=== PATIENT | female | born 1965 | race Hispanic/Latino ===

== ENCOUNTER 2018-11-27 22:20 | Emergency (ER) | payer BC, MEDICAID ==
[2018-11-27] MEDS ORDERED: ACETAMINOPHEN EXTRA STRENGTH 500 MG TABLET ONE (22:39)
[2018-11-27] MEDS ORDERED: IPRATROPIUM/ALBUTEROL SULFATE 3 ML SOLUTION IH ONE (22:49)
[2018-11-27 23:04] LABS: RAPID GROUP A STREP NEGATIVE (NEGATIVE)
[2018-11-27] MEDS ORDERED: DEXAMETHASONE SOD PHOSPHATE 10MG/ML 1ML VIAL ONE (23:45)
== END 2018-11-28 00:18 | disposition home or self-care (01) ==
LOC: EDH 22:20
DX: J45.909 Unspecified asthma, uncomplicated (principal); F41.9 Anxiety disorder, unspecified; I10 Essential (primary) hypertension; E11.9 Type 2 diabetes mellitus without complications; Z79.4 Long term (current) use of insulin; Z90.710 Acquired absence of both cervix and uterus; Z88.0 Allergy status to penicillin; Z88.8 Allergy status to other drugs, medicaments and biological substances
CPT/HCPCS: 71046; 87804 ×2; 87880; 94640; 96372; 99284; J1100

== ENCOUNTER → 2019-03-19 | Outpatient (CLI) | payer BC, MEDICAID | END | disposition home or self-care (01) | LOC: OIH 10:59 | PROVIDERS: ATTEND Internal Medicine | DX: R06.09 Other forms of dyspnea (principal) | CPT/HCPCS: 71046 ==

== ENCOUNTER → 2020-07-28 | Outpatient (CLI) | payer BC, MEDICAID | END | disposition home or self-care (01) | LOC: RAH 10:27 | PROVIDERS: ATTEND Internal Medicine | DX: S09.90XA Unspecified injury of head, initial encounter (principal); W19.XXXA Unspecified fall, initial encounter; R11.10 Vomiting, unspecified; R11.0 Nausea; Y93.89 Activity, other specified; Y92.89 Other specified places as the place of occurrence of the external cause; Y99.8 Other external cause status | CPT/HCPCS: 70450 ==

== ENCOUNTER → 2021-02-27 | Outpatient (CLI) | payer BC, MEDICAID | END | disposition home or self-care (01) | LOC: RAH 14:41 | PROVIDERS: ATTEND Internal Medicine | DX: M79.601 Pain in right arm (principal); R29.6 Repeated falls; R40.20 Unspecified coma; R51.9 Headache, unspecified; W19.XXXA Unspecified fall, initial encounter; Y93.89 Activity, other specified; Y92.89 Other specified places as the place of occurrence of the external cause; Y99.8 Other external cause status | CPT/HCPCS: 70450; 73060 ==

== ENCOUNTER → 2021-10-21 | Outpatient (CLI) | payer BC, MEDICAID | END | disposition home or self-care (01) | LOC: OIH 09:50 | PROVIDERS: ATTEND Internal Medicine | DX: K80.20 Calculus of gallbladder without cholecystitis without obstruction (principal); K76.0 Fatty (change of) liver, not elsewhere classified; K44.9 Diaphragmatic hernia without obstruction or gangrene; M47.815 Spondylosis without myelopathy or radiculopathy, thoracolumbar region; R74.8 Abnormal levels of other serum enzymes | CPT/HCPCS: 74150 ==

== ENCOUNTER 2022-02-25 07:24 | Inpatient (IN) | payer BC, MEDICAID ==
[~2022-02-25] VITALS: Ht 152.4 cm; Wt 108.9 kg
[2022-02-25] MEDS ORDERED: NAPR-1098 PO (08:49)
[2022-02-25] MEDS ORDERED: MORPHINE 4 MG SYG IVP ONE (10:30)
[2022-02-25] MEDS ORDERED: ONDANSETRON 4MG INJ IVP ONE (10:30)
[2022-02-25 11:13] LABS: HEMATOCRIT 46.3 % (36-48); MEAN CORPUSCULAR HEMOGLOBIN 28.9 pg (27.0-33.0); MEAN CORPUSCULAR VOLUME 87.4 fL (79-99); PLATELET COUNT (AUTO) 171 K/uL (130-400); RED CELL DISTRIBUTION WIDTH 13.1 % (11.0-15.5); WHITE BLOOD COUNT (AUTO) 9.8 K/uL (4.8-10.8)
[2022-02-25 11:20] LABS: CREATININE 0.9 mg/dL (0.5-1.5); POTASSIUM 4.9 mmol/L (3.5-5.1)
[2022-02-25 11:25] LABS: ALBUMIN 3.4 g/dL (3.5-5.0); BILIRUBIN,TOTAL 0.5 mg/dL (0.2-1.0); TOTAL PROTEIN, SERUM 7.6 g/dL (6.0-8.3)
[2022-02-25 12:00] LABS: BASOPHILS % (AUTO) 0.3 % (0.0-5.0); EOSINOPHILS % (AUTO) 1.6 % (0.0-8.0); LYMPHOCYTES % (AUTO) 19.3 % (21.0-51.0); MONOCYTES % (AUTO) 5.8 % (3.0-13.0); NEUTROPHILS % (AUTO) 72.5 % (40.0-77.0)
[2022-02-25 12:38] LABS: INR 0.93 (0.85-1.15); PROTHROMBIN TIME 10.1 SEC (9.6-11.6)
[2022-02-25 13:00] VITALS: BP 157/60
[2022-02-25] MEDS ORDERED: CLON1PAT14 TP (13:25)
[2022-02-25] MEDS ORDERED: DULA1.5P SQ (13:25)
[2022-02-25] MEDS ORDERED: INSU500V SQ (13:26)
[2022-02-25] MEDS ORDERED: FAMO40TA7 PO (13:27)
[2022-02-25] MEDS ORDERED: MELO-108 PO (13:32)
[2022-02-25] MEDS ORDERED: MECL-226 PO (13:32)
[2022-02-25] MEDS ORDERED: ATEN50TA PO (13:32)
[2022-02-25] MEDS ORDERED: TRAZ-253 PO (13:32)
[2022-02-25] MEDS ORDERED: SUCR1TAB PO (13:46)
[2022-02-25] MEDS ORDERED: PREG100C55 PO (13:46)
[2022-02-25] MEDS ORDERED: CLON0.1T2 PO (13:46)
[2022-02-25] MEDS ORDERED: ACET-2079 PO (13:46)
[2022-02-25] MEDS ORDERED: ALPR1TAB7 PO (13:46)
[2022-02-25] MEDS ORDERED: INSU100V39 SQ (13:46)
[2022-02-25] MEDS ORDERED: CETI10TA57 PO (13:46)
[2022-02-25 15:48] VITALS: BP 156/76
[2022-02-25] MEDS ORDERED: GLUCAGON 1MG KIT 1 MG ML IM PRN (17:30)
[2022-02-25] MEDS ORDERED: DEXTROSE 50%-WATER 50 ML DISP.SYRIN IV PRN (17:30)
[2022-02-25] MEDS ORDERED: ONDANSETRON 4MG INJ IVP PRN (19:30)
[2022-02-25 20:04] VITALS: BP 141/57
[2022-02-25] MEDS: 0.9%NACL 1000ML 1,000 ML IV SCH (20:48)
[2022-02-25] MEDS: HYDROMORPHONE 0.5 MG SYG (0.5MG/0.5ML) IVP PRN (20:48)
[2022-02-25] MEDS: INSULIN HUMULIN R 100 UNIT/ML 3ML SQ SCH (20:54)
[2022-02-26 00:12] VITALS: BP 139/72
[2022-02-26] MEDS: 0.9%NACL 1000ML 1,000 ML IV SCH ×2 (01:36→12:59)
[2022-02-26 04:16] VITALS: BP 161/76
[2022-02-26 04:47] LABS: HEMATOCRIT 39.9 % (36-48); MEAN CORPUSCULAR HGB CONC 33.8 g/dL (32.0-36.0); MEAN CORPUSCULAR VOLUME 85.8 fL (79-99); PLATELET COUNT (AUTO) 159 K/uL (130-400); RED BLOOD CELL COUNT(AUTO) 4.65 MIL/uL (4.00-5.50); RED CELL DISTRIBUTION WIDTH 13.2 % (11.0-15.5); WHITE BLOOD COUNT (AUTO) 8.6 K/uL (4.8-10.8)
[2022-02-26 04:48] LABS: BASOPHILS % (AUTO) 0.2 % (0.0-5.0); EOSINOPHILS % (AUTO) 4.7 % (0.0-8.0); LYMPHOCYTES % (AUTO) 29.8 % (21.0-51.0); MONOCYTES % (AUTO) 7.2 % (3.0-13.0); NEUTROPHILS % (AUTO) 57.8 % (40.0-77.0)
[2022-02-26 05:01] LABS: BILIRUBIN,TOTAL 0.7 mg/dL (0.2-1.0); CREATININE 0.7 mg/dL (0.5-1.5); POTASSIUM 4.3 mmol/L (3.5-5.1); TOTAL PROTEIN, SERUM 6.9 g/dL (6.0-8.3)
[2022-02-26] MEDS: INSULIN HUMULIN R 100 UNIT/ML 3ML SQ SCH ×4 (06:16→20:01)
[2022-02-26 07:11] VITALS: BP 148/92
[2022-02-26 11:18] VITALS: BP 129/60
[2022-02-26] MEDS: HYDROMORPHONE 0.5 MG SYG (0.5MG/0.5ML) IVP PRN ×2 (15:37→21:13)
[2022-02-26 16:08] VITALS: BP 152/73
[2022-02-26 20:00] VITALS: BP 165/79
[2022-02-27] VITALS: BP 121/51
[2022-02-27] MEDS: 0.9%NACL 1000ML 1,000 ML IV SCH ×3 (00:48→20:47)
[2022-02-27 04:00] VITALS: BP 153/73
[2022-02-27] MEDS: INSULIN HUMULIN R 100 UNIT/ML 3ML SQ SCH ×5 (06:01→20:18)
[2022-02-27 12:00] VITALS: BP 169/72
[2022-02-27 16:00] VITALS: BP 168/71
[2022-02-27 20:00] VITALS: BP 161/75
[2022-02-28] VITALS: BP 158/70
[2022-02-28 03:50] VITALS: BP 149/73
[2022-02-28] MEDS: 0.9%NACL 1000ML 1,000 ML IV SCH (06:21)
[2022-02-28] MEDS: INSULIN HUMULIN R 100 UNIT/ML 3ML SQ SCH (06:21)
== END 2022-02-28 09:42 | disposition home or self-care (01) | DRG 563 ==
LOC: EDH 07:24 → 4AH 11:06 → EDH 12:26
PROVIDERS: ADMIT Internal Medicine; ATTEND Internal Medicine
DX: S42.215A Unspecified nondisplaced fracture of surgical neck of left humerus, initial encounter for closed fracture (principal); S42.214A Unspecified nondisplaced fracture of surgical neck of right humerus, initial encounter for closed fracture; Z68.42 Body mass index [BMI] 45.0-49.9, adult; I10 Essential (primary) hypertension; E11.9 Type 2 diabetes mellitus without complications; E66.01 Morbid (severe) obesity due to excess calories; E78.5 Hyperlipidemia, unspecified; Z20.822 Contact with and (suspected) exposure to COVID-19; K21.9 Gastro-esophageal reflux disease without esophagitis; W06.XXXA Fall from bed, initial encounter; J45.909 Unspecified asthma, uncomplicated; Y93.89 Activity, other specified; Y92.89 Other specified places as the place of occurrence of the external cause; Y99.8 Other external cause status; Z79.4 Long term (current) use of insulin
CPT/HCPCS: 36415; 72070; 73030; 73200; 80053; 82948; 85025; 85610; 87635; 93005; C9803; G0378; J1170; J1815; J2270; J2405

== ENCOUNTER 2022-04-25 14:56 | Emergency (ER) | payer BC, MEDICAID ==
[~2022-04-25] VITALS: Ht 152.4 cm; Wt 104.3 kg
[~2022-04-25 14:56] MED LIST: ACET-2079 PO; ALPR1TAB7 PO; ATEN50TA PO; CETI10TA57 PO; CLON0.1T2 PO; CLON1PAT14 TP; DULA1.5P SQ; FAMO40TA7 PO; INSU100V39 SQ; INSU500V SQ; MECL-226 PO; MELO-108 PO; PREG100C55 PO; SUCR1TAB PO; TRAZ-253 PO
[2022-04-25] MEDS ORDERED: PANTOPRAZOLE 40 MG/VIAL IVP ONE (15:30)
[2022-04-25 15:38] LABS: APPEARANCE,URINE SL CLOUDY (CLEAR); BILIRUBIN,URINE SMALL (NEGATIVE); COLOR,URINE YELLOW (YELLOW); GLUCOSE, URINE (UA) >=1000 mg/dL (NEGATIVE); KETONES,URINE >=80 mg/dL (NEGATIVE); LEUKOCYTE ESTERASE ,URINE NEGATIVE (NEGATIVE); NITRATE,URINE POSITIVE (NEGATIVE); OCCULT BLOOD,URINE SMALL (NEGATIVE); PH,URINE 5.5 (5.0-8.0); PROTEIN,URINE >=300 mg/dL (NEGATIVE)
[2022-04-25 15:49] LABS: BACTERIA,URINE Few /HPF (None Seen); MUCUS,URINE Moderate LPF (None Seen); SQUAMOUS EPITHELIAL CELL,UR Moderate /HPF (0-2); YEAST,URINE BUDDING Moderate /HPF (None Seen)
[2022-04-25 15:56] LABS: BASOPHILS % (AUTO) 0.4 % (0.0-5.0); EOSINOPHILS % (AUTO) 0.3 % (0.0-8.0); HEMATOCRIT 46.1 % (36-48); LYMPHOCYTES % (AUTO) 23.5 % (21.0-51.0); MEAN CORPUSCULAR HEMOGLOBIN 28.5 pg (27.0-33.0); MEAN CORPUSCULAR VOLUME 86.3 fL (79-99); MONOCYTES % (AUTO) 6.2 % (3.0-13.0); NEUTROPHILS % (AUTO) 69.2 % (40.0-77.0); PLATELET COUNT (AUTO) 203 K/uL (130-400); RED BLOOD CELL COUNT(AUTO) 5.34 MIL/uL (4.00-5.50); RED CELL DISTRIBUTION WIDTH 13.4 % (11.0-15.5); WHITE BLOOD COUNT (AUTO) 9.2 K/uL (4.8-10.8)
[2022-04-25 16:13] LABS: ALBUMIN 3.7 g/dL (3.5-5.0); CREATININE 1.1 mg/dL (0.5-1.5); POTASSIUM 4.6 mmol/L (3.5-5.1); TOTAL PROTEIN, SERUM 8.2 g/dL (6.0-8.3)
[2022-04-25] MEDS ORDERED: PANTOPRAZOLE 40 MG/VIAL ONE (16:40)
[2022-04-25] MEDS ORDERED: 0.9%NACL 1000ML 1,000 ML IV ONE (17:00)
[2022-04-25] MEDS ORDERED: INSULIN HUMULIN R 100 UNIT/ML 3ML IV ONE (17:00)
[2022-04-25] MEDS ORDERED: LIDOCAINE HCL 2% VISCOUS 15 ML UDCUP ONE (17:02)
[2022-04-25] MEDS ORDERED: MAG/ALUM/SIMETH 30 ML UDCUP ONE (17:02)
[2022-04-25 18:40] VITALS: BP 156/75
[2022-04-25] MEDS ORDERED: CIPR-279 PO (18:45)
== END 2022-04-25 18:50 | disposition home or self-care (01) ==
LOC: EDH 14:56
DX: N39.0 Urinary tract infection, site not specified (principal); E11.65 Type 2 diabetes mellitus with hyperglycemia; F32.A Depression, unspecified; I10 Essential (primary) hypertension; J45.909 Unspecified asthma, uncomplicated; K21.9 Gastro-esophageal reflux disease without esophagitis; E66.01 Morbid (severe) obesity due to excess calories; Z79.1 Long term (current) use of non-steroidal anti-inflammatories (NSAID); Z79.4 Long term (current) use of insulin; Z79.899 Other long term (current) drug therapy; Z88.0 Allergy status to penicillin; Z88.8 Allergy status to other drugs, medicaments and biological substances; Z68.41 Body mass index [BMI] 40.0-44.9, adult
CPT/HCPCS: 36415; 80053; 81001; 82150; 82948; 83690; 84484; 85025; 87088; 93005; 96361; 96374; 96375; 99284; C9113; J1815; J7030

== ENCOUNTER → 2022-08-23 | Outpatient (CLI) | payer BC, MEDICAID ==
[~2022-08-23] MED LIST changes: +CIPR-279 PO
== END | disposition home or self-care (01) ==
LOC: RAH 08:40
PROVIDERS: ATTEND Internal Medicine
DX: R10.2 Pelvic and perineal pain (principal); R10.9 Unspecified abdominal pain
CPT/HCPCS: 76770; 76856

== ENCOUNTER 2023-05-14 05:36 | Emergency (ER) | payer BC, MEDICAID ==
[~2023-05-14] VITALS: Ht 152.4 cm; Wt 112.5 kg
[~2023-05-14 05:36] MED LIST changes: -INSU100V39 SQ; +INSU100V45 SQ
[2023-05-14 06:10] LABS: BASOPHILS % (AUTO) 0.1 % (0.0-5.0); EOSINOPHILS % (AUTO) 6.8 % (0.0-8.0); HEMATOCRIT 41.3 % (36-48); LYMPHOCYTES % (AUTO) 39.7 % (21.0-51.0); MEAN CORPUSCULAR HEMOGLOBIN 28.6 pg (27.0-33.0); MEAN CORPUSCULAR HGB CONC 33.2 g/dL (32.0-36.0); MEAN CORPUSCULAR VOLUME 86.2 fL (79-99); MONOCYTES % (AUTO) 9.5 % (3.0-13.0); NEUTROPHILS % (AUTO) 43.7 % (40.0-77.0); PLATELET COUNT (AUTO) 180 K/uL (130-400); RED BLOOD CELL COUNT(AUTO) 4.79 MIL/uL (4.00-5.50); WHITE BLOOD COUNT (AUTO) 8.2 K/uL (4.8-10.8)
[2023-05-14 06:16] LABS: APPEARANCE,URINE CLEAR (CLEAR); BILIRUBIN,URINE NEGATIVE (NEGATIVE); COLOR,URINE LIGHT-YELLOW (YELLOW); GLUCOSE, URINE (UA) NEGATIVE (NEGATIVE); KETONES,URINE NEGATIVE (NEGATIVE); LEUKOCYTE ESTERASE ,URINE NEGATIVE Leu/uL (NEGATIVE); NITRATE,URINE NEGATIVE (NEGATIVE); OCCULT BLOOD,URINE NEGATIVE (NEGATIVE); PH,URINE 6.5 (5.0-8.0); PROTEIN,URINE NEGATIVE (NEGATIVE); UROBILINOGEN,URINE 0.2 mg/dL (0.2-1.0)
[2023-05-14 06:19] LABS: CREATININE 0.8 mg/dL (0.5-1.5); POTASSIUM 3.5 mmol/L (3.5-5.1)
[2023-05-14 06:23] LABS: ALBUMIN 3.2 g/dL (3.5-5.0); TOTAL PROTEIN, SERUM 7.5 g/dL (6.0-8.3)
[2023-05-14] MEDS ORDERED: FAMOTIDINE 20MG VIAL IV ONE (08:30)
[2023-05-14] MEDS ORDERED: DEXAMETHASONE SOD PHOSPHATE 4 MG/ML 1ML VIAL IV ONE (08:30)
[2023-05-14] MEDS ORDERED: MORPHINE 2 MG SYG IVP ONE (08:30)
[2023-05-14] MEDS ORDERED: METOCLOPRAMIDE 10 MG/2 ML VIAL IVP ONE (08:30)
[2023-05-14] MEDS ORDERED: GADOTERATE MEGLUMINE 10 MMOL/20 ML VIAL IV ONE (12:06)
[2023-05-14] MEDS ORDERED: SUMA25TA25 PO (13:28)
[2023-05-14] MEDS ORDERED: METO-296 PO (13:28)
[2023-05-14 13:43] VITALS: BP 139/58; PULSE 74; RESP 18
== END 2023-05-14 13:48 | disposition home or self-care (01) ==
LOC: EDH 05:36
DX: G43.909 Migraine, unspecified, not intractable, without status migrainosus (principal); F41.9 Anxiety disorder, unspecified; J45.909 Unspecified asthma, uncomplicated; E11.9 Type 2 diabetes mellitus without complications; F32.A Depression, unspecified; I10 Essential (primary) hypertension; Z79.4 Long term (current) use of insulin; Z79.899 Other long term (current) drug therapy; Z88.0 Allergy status to penicillin; Z88.8 Allergy status to other drugs, medicaments and biological substances
CPT/HCPCS: 99285; 70553; 96374; 96375; 70450; 84484; 80053; 85025; 82948 ×3; 81003; 36415; 93005; J1100; J3490; J2270; J2765; A9575

== ENCOUNTER → 2024-01-12 | Outpatient (CLI) | payer BC, MEDICAID ==
[~2024-01-12] MED LIST changes: +METO-296 PO; -PREG100C55 PO; +PREG100C56 PO; +SUMA25TA25 PO
== END | disposition home or self-care (01) ==
LOC: RAH 11:43
PROVIDERS: ATTEND Internal Medicine
DX: M47.26 Other spondylosis with radiculopathy, lumbar region (principal)
CPT/HCPCS: 72100

== ENCOUNTER 2024-03-19 20:51 | Emergency (ER) | payer BC, MEDICAID ==
[~2024-03-19] VITALS: Ht 152.4 cm; Wt 113.9 kg
[2024-03-19 21:40] LABS: BASOPHILS # (AUTO) 0.04 K/uL (0.00-0.20); BASOPHILS % (AUTO) 0.5 % (0.0-5.0); EOSINOPHILS # (AUTO) 0.36 K/uL (0.00-0.70); EOSINOPHILS % (AUTO) 4.9 % (0.0-8.0); HEMATOCRIT 43.6 % (36-48); IMMATURE GRANULOCYTE ABSOLUTE 0.02 K/uL (0-1); LYMPHOCYTES # (AUTO) 2.5 K/uL (1.0-4.8); LYMPHOCYTES % (AUTO) 34.3 % (21.0-51.0); MEAN CORPUSCULAR HEMOGLOBIN 29.4 pg (27.0-33.0); MEAN CORPUSCULAR HGB CONC 33.5 g/dL (32.0-36.0); MEAN CORPUSCULAR VOLUME 87.9 fL (79-99); MONOCYTES # (AUTO) 0.6 K/uL (0.1-1.0); MONOCYTES % (AUTO) 8.2 % (3.0-13.0); NEUTROPHILS # (AUTO) 3.8 K/uL (1.8-7.7); NEUTROPHILS % (AUTO) 51.8 % (40.0-77.0); PLATELET COUNT (AUTO) 177 K/uL (130-400); RED BLOOD CELL COUNT(AUTO) 4.96 MIL/uL (4.00-5.50); RED CELL DISTRIBUTION WIDTH 13.7 % (11.0-15.5); WHITE BLOOD COUNT (AUTO) 7.3 K/uL (4.8-10.8)
[2024-03-19 21:51] LABS: CREATININE 0.8 mg/dL (0.5-1.0); POTASSIUM 3.9 mmol/L (3.5-5.1)
[2024-03-19] MEDS: MORPHINE 2 MG SYG IVP ONE (21:57)
[2024-03-19] MEDS: ONDANSETRON 4MG INJ IVP ONE (21:57)
[2024-03-19 22:00] LABS: ALBUMIN 3.4 g/dL (3.5-5.0); BILIRUBIN,TOTAL 0.5 mg/dL (0.2-1.0); TOTAL PROTEIN, SERUM 7.4 g/dL (6.0-8.3)
[2024-03-20 00:37] LABS: APPEARANCE,URINE CLEAR (CLEAR); BILIRUBIN,URINE NEGATIVE (NEGATIVE); COLOR,URINE LIGHT-YELLOW (YELLOW); GLUCOSE, URINE (UA) NEGATIVE (NEGATIVE); KETONES,URINE NEGATIVE (NEGATIVE); LEUKOCYTE ESTERASE ,URINE NEGATIVE Leu/uL (NEGATIVE); NITRATE,URINE NEGATIVE (NEGATIVE); OCCULT BLOOD,URINE NEGATIVE (NEGATIVE); PH,URINE 6.5 (5.0-8.0); PROTEIN,URINE 10 mg/dL (NEGATIVE); UROBILINOGEN,URINE 0.2 mg/dL (0.2-1.0)
[2024-03-20 00:41] LABS: ADD UA MICROSCOPIC YES
[2024-03-20 00:42] LABS: MUCUS,URINE RARE LPF (None Seen); RBC,URINE 0-1 /HPF (0-1); SQUAMOUS EPITHELIAL CELL,UR MOD /HPF (0-2); WBC,URINE 0-1 /HPF (0-1)
[2024-03-20] MEDS: KETOROLAC 30MG VIAL (30MG/ML) IVP ONE (01:02)
[2024-03-20 01:09] VITALS: BP 158/87; PULSE 85; RESP 18; O2SAT 98
== END 2024-03-20 01:11 | disposition home or self-care (01) ==
LOC: EDH 20:51
DX: G89.29 Other chronic pain (principal); M25.551 Pain in right hip; R10.84 Generalized abdominal pain; J45.909 Unspecified asthma, uncomplicated; E11.9 Type 2 diabetes mellitus without complications; I10 Essential (primary) hypertension; M19.90 Unspecified osteoarthritis, unspecified site; Z88.0 Allergy status to penicillin; Z88.8 Allergy status to other drugs, medicaments and biological substances; Z79.899 Other long term (current) drug therapy; Z79.4 Long term (current) use of insulin; Z90.710 Acquired absence of both cervix and uterus
CPT/HCPCS: 99284; 96374; 96375 ×2; 84484; 80053; 85025; 81001; 36415; J2270; J2405; J1885

== ENCOUNTER 2024-04-24 06:54 | Day surgery (SDC) | payer BC, MEDICAID ==
[2024-04-20 12:59] VITALS: BP 159/71; PULSE 85; RESP 18
[2024-04-20 13:02] LABS: BASOPHILS # (AUTO) 0.03 K/uL (0.00-0.20); BASOPHILS % (AUTO) 0.3 % (0.0-5.0); EOSINOPHILS # (AUTO) 0.39 K/uL (0.00-0.70); EOSINOPHILS % (AUTO) 4.2 % (0.0-8.0); HEMATOCRIT 43.9 % (36-48); IMMATURE GRANULOCYTE ABSOLUTE 0.02 K/uL (0-1); LYMPHOCYTES # (AUTO) 2.2 K/uL (1.0-4.8); LYMPHOCYTES % (AUTO) 23.6 % (21.0-51.0); MEAN CORPUSCULAR HEMOGLOBIN 28.9 pg (27.0-33.0); MEAN CORPUSCULAR HGB CONC 32.8 g/dL (32.0-36.0); MEAN CORPUSCULAR VOLUME 88.2 fL (79-99); MONOCYTES # (AUTO) 0.7 K/uL (0.1-1.0); NEUTROPHILS % (AUTO) 64.7 % (40.0-77.0); PLATELET COUNT (AUTO) 208 K/uL (130-400); RED BLOOD CELL COUNT(AUTO) 4.98 MIL/uL (4.00-5.50); RED CELL DISTRIBUTION WIDTH 13.2 % (11.0-15.5); WHITE BLOOD COUNT (AUTO) 9.3 K/uL (4.8-10.8)
[2024-04-20 13:09] LABS: CREATININE 0.8 mg/dL (0.5-1.0); POTASSIUM 4.3 mmol/L (3.5-5.1)
[2024-04-20 13:16] LABS: APPEARANCE,URINE CLOUDY (CLEAR); BILIRUBIN,URINE NEGATIVE (NEGATIVE); COLOR,URINE YELLOW (YELLOW); GLUCOSE, URINE (UA) 70 mg/dL (NEGATIVE); KETONES,URINE NEGATIVE (NEGATIVE); LEUKOCYTE ESTERASE ,URINE NEGATIVE Leu/uL (NEGATIVE); NITRATE,URINE NEGATIVE (NEGATIVE); OCCULT BLOOD,URINE NEGATIVE (NEGATIVE); PH,URINE 5.5 (5.0-8.0); PROTEIN,URINE 10 mg/dL (NEGATIVE); UROBILINOGEN,URINE 0.2 mg/dL (0.2-1.0)
[2024-04-20 13:19] LABS: ADD UA MICROSCOPIC YES
[2024-04-20 13:24] LABS: MUCUS,URINE RARE LPF (None Seen); RBC,URINE 0-1 /HPF (0-1); SQUAMOUS EPITHELIAL CELL,UR FEW /HPF (0-2)
[2024-04-20 14:13] LABS: B-TYPE NATRIURETIC PEPTIDE 9 pg/mL (0-100)
[2024-04-20 14:16] LABS: INR 1.04 (0.85-1.15); PARTIAL THROMBOPLASTIN TIME 59.5 SEC (26.3-35.5)
[~2024-04-24] VITALS: Ht 152.4 cm; Wt 109.1 kg
[2024-04-24] VITALS (10 sets, daily range): BP systolic 111–178; BP diastolic 40–62; PULSE 67–87; RESP 13–18
[~2024-04-24 06:54] MED LIST changes: -ACET-2079 PO; +AMLO-257 PO; -ATEN50TA PO; +CELE-125 PO; -CETI10TA57 PO; -CIPR-279 PO; -CLON1PAT14 TP; -DULA1.5P SQ; +DULO40CA2 PO; +ESCI-8 PO; +FURO20TA4 PO; +HYDR-4068 PO; -INSU100V45 SQ; -INSU500V SQ; +LABE100T7 PO; +LOSA100T59 PO; -MELO-108 PO; -METO-296 PO; +PANT40TA54 PO; -PREG100C56 PO; -SUCR1TAB PO; -SUMA25TA25 PO; -TRAZ-253 PO; +TRAZ150T79 PO
[2024-04-24] MEDS: INSULIN HUMULIN R 100 UNIT/ML 3ML SQ ONE (07:45)
[2024-04-24] MEDS: 0.9%NACL 1000ML 1,000 ML IV ONE (08:33)
[2024-04-24] MEDS: INSULIN HUMULIN R 100 UNIT/ML 3ML ONE ×2 (09:41→14:39)
[2024-04-24] MEDS ORDERED: LIDOCAINE HCL 400MG/20ML VIAL ONE (12:01)
[2024-04-24] MEDS ORDERED: BIVALIRUDIN 250 MG/VIAL IV ONE (12:01)
[2024-04-24] MEDS ORDERED: MIDAZOLAM HCL 1 MG/ML 2ML VIAL ONE (12:02)
[2024-04-24] MEDS ORDERED: NITROGLYCERIN 50MG VIAL ONE (12:02)
[2024-04-24] MEDS ORDERED: IOHEXOL 350 MG/ML 100ML INFUS..BTL IV ONE (12:02)
[2024-04-24] MEDS ORDERED: FENTANYL CITRATE PF 50 MCG/1 ML 2ML VIAL ONE (12:02)
[2024-04-24] MEDS ORDERED: HEPARIN 10,000 UNIT/10ML (1,000 UNIT/ML) VIAL ONE (12:02)
[2024-04-24] MEDS ORDERED: LABETALOL 20MG SYG IV ONE ×3 (12:38→12:58)
[2024-04-24] MEDS ORDERED: IOHEXOL-350 50ML VIAL IV ONE (12:38)
[2024-04-24] MEDS ORDERED: 0.9%NACL 1000ML 1,000 ML IV SCH (13:30)
[2024-04-24] MEDS ORDERED: DEXTROSE 50%-WATER 50 ML DISP.SYRIN IV PRN (13:30)
[2024-04-24] MEDS ORDERED: GLUCAGON 1MG KIT 1 MG ML IM PRN (13:30)
[2024-04-24] MEDS ORDERED: TELM80TA10 PO (14:12)
[2024-04-24] MEDS ORDERED: INSULIN HUMULIN R 100 UNIT/ML 3ML SQ SCH (16:30)
== END 2024-04-24 17:50 | disposition home or self-care (01) ==
LOC: DAH 06:54
PROVIDERS: ATTEND Internal Medicine Cardiovascular Disease
DX: R07.89 Other chest pain (principal); R06.09 Other forms of dyspnea; I11.0 Hypertensive heart disease with heart failure; I50.32 Chronic diastolic (congestive) heart failure; G47.30 Sleep apnea, unspecified; J45.909 Unspecified asthma, uncomplicated; E11.9 Type 2 diabetes mellitus without complications; K21.9 Gastro-esophageal reflux disease without esophagitis; E66.01 Morbid (severe) obesity due to excess calories; Z68.42 Body mass index [BMI] 45.0-49.9, adult; Z79.891 Long term (current) use of opiate analgesic; Z79.899 Other long term (current) drug therapy; Z88.0 Allergy status to penicillin; Z88.8 Allergy status to other drugs, medicaments and biological substances; Z91.041 Radiographic dye allergy status; Z82.5 Family history of asthma and other chronic lower respiratory diseases; Z80.42 Family history of malignant neoplasm of prostate; Z83.79 Family history of other diseases of the digestive system; Z80.3 Family history of malignant neoplasm of breast; Z83.3 Family history of diabetes mellitus; Z82.49 Family history of ischemic heart disease and other diseases of the circulatory system; Z90.710 Acquired absence of both cervix and uterus; Z98.890 Other specified postprocedural states
CPT/HCPCS: 80048; 83880; 85025; 85610; 85730; 81001; 36415; 71045; 93005; 93460; 36252; 82948 ×3; J1815 ×3; C1894 ×3; C1769; C1760; J3010; J3490 ×2; J7030; J2250; J1644; Q9967 ×2; A4215; A4222; A4221; A4663; A4216; A4606; Q9965 ×2; A4223 ×3; 99156; 99157; J0583

== ENCOUNTER → 2024-11-21 | Outpatient (CLI) | payer BC, MEDICAID ==
[~2024-11-21] MED LIST changes: -FURO20TA4 PO; -LOSA100T59 PO; +TELM80TA10 PO
--- NOTE | 2024-11-21 14:46 | HMCIMG ---
RIGHT KNEE RADIOGRAPHS - 3 VIEWS INDICATION: Pain COMPARISON: 08/31/2021 FINDINGS: AP, lateral, and oblique views. No acute fracture or dislocation identified. Nominal tricompartmental right knee osteoarthropathy. Trace suprapatellar bursal fluid. Overlying soft tissues appear normal. IMPRESSION: Nominal tricompartmental right knee osteoarthropathy and trace suprapatellar bursal fluid.
== END | disposition home or self-care (01) ==
LOC: RAH 10:38
PROVIDERS: ATTEND Internal Medicine
DX: M17.11 Unilateral primary osteoarthritis, right knee (principal)
CPT/HCPCS: 73562

== ENCOUNTER → 2024-12-12 | Outpatient (CLI) | payer BC, MEDICAID ==
--- NOTE | 2024-12-12 13:00 | HMCIMG ---
CT LOW EXT W/O CONTRAST HISTORY: Bursitis of the knee COMPARISON: None TECHNIQUE: Multiple sequential axial images of the right knee were obtained including post processing sagittal and coronal reconstruction images. Patient was not given contrast through intravenous route. Three-dimensional reconstruction images were obtained. FINDINGS: Small joint effusion is seen. There is no acute displaced fracture or dislocation. If needed, MRI may be performed for complete evaluation. Evaluation for ligaments, tendons, menisci are limited with CT. IMPRESSION: 1. No fracture is seen. Small joint effusion. CT was performed with one or more following dose reduction techniques: automated exposure control, adjustment of the mA and kv according to patient's size, or use of a iterative reconstruction technique.
== END | disposition home or self-care (01) ==
LOC: RAH 11:42
PROVIDERS: ATTEND Internal Medicine
DX: M71.561 Other bursitis, not elsewhere classified, right knee (principal); M23.91 Unspecified internal derangement of right knee; M25.461 Effusion, right knee; R26.81 Unsteadiness on feet
CPT/HCPCS: 73700

== ENCOUNTER 2025-03-13 19:22 | Emergency (ER) | payer BC, MEDICAID ==
[~2025-03-13] VITALS: Ht 152.4 cm; Wt 107.0 kg
--- NOTE | 2025-03-13 19:50 | ERN ---
ED Note History of Present Illness Stated Complaint: ABDOMINAL PAIN, URINARY SYMPTOMS Chief Complaint: Abdominal Pain Time Seen by MD: 19:25 Time Seen by Midlevel: 19:25 Dictation: The patient is a 59-year-old female with a history of hypertension, COPD, diabetes who presents to the emergency department with complaints of lower abdominal pain that radiates up her left upper abdominal pain onset 3:00 p.m. associated with nausea and nonbloody vomiting. Patient denies any diarrhea, reports one episode of bowel movement today. Denies any fever. Patient initially reported that she had trouble urinating but reports she has now been able to urinate. Allergies: Coded Allergies: Penicillins (Verified Allergy, Mild, 02/25/22) povidone-iodine (Verified Allergy, Unknown, SWELLING, 02/25/22) TROPICAL/INTRAVENOUS Uncoded Allergies: LAXATIVES (Allergy, Mild, 02/25/22) Home Meds Reported Medications Telmisartan (Telmisartan) 80 Mg Tablet, 80 MG PO DAILY, TAB 04/24/24 Amlodipine Besylate (Amlodipine Besylate) 5 Mg Tablet, 5 MG PO DAILY, TAB 04/23/24 Labetalol HCl (Labetalol HCl) 100 Mg Tablet, 200 MG PO BID, TAB 04/23/24 Escitalopram Oxalate (Escitalopram Oxalate) 10 Mg Tablet, 10 MG PO DAILY, TAB 24 Hydrocodone/Acetaminophen (Hydrocodon-Acetaminophn 10-325) 10 Mg-325 Mg Tablet, 1 EACH PO BID PRN for PAIN, TAB 04/23/24 Pantoprazole Sodium (Pantoprazole Sodium) 40 Mg Tablet.dr, 40 MG PO DAILY, TAB 04/23/24 Duloxetine HCl (Duloxetine HCl) 40 Mg Capsule.dr, 80 MG PO DAILY, CAP 04/23/24 Celecoxib (Celecoxib) 200 Mg Capsule, 200 MG PO HS, CAP 04/23/24 Trazodone HCl (Trazodone HCl) 150 Mg Tablet, 150 MG PO HS, TAB 04/23/24 Alprazolam (Alprazolam) 1 Mg Tablet, 1 MG PO BID 02/25/22 Clonidine HCl (Catapress) 0.1 Mg Tab, 0.1 MG PO BID 02/25/22 Meclizine HCl (Meclizine HCl) 12.5 Mg Tablet, 12.5 MG PO TID 02/25/22 Famotidine (Famotidine) 40 Mg Tablet, 40 MG PO HS 02/25/22 Past Medical History Past Medical History: Arthritis, Asthma, Diabetes-Type II, Hypertension Additional Past Medical Hx: HX OF SLEEP APNEA; Surgical History: Hysterectomy, Other Surgical History Other: BACK SX Social History: Negative, Lives with family RN Note Reviewed/Agreed w/PFSH: Yes Review of System Dictation Constitutional: Negative for fever,chills, and weight loss Eyes: Negative for injury, pain,redness, and discharge ENT: Negative for injury,pain or swelling Cardiovascular: Negative for chest pain, palpitations, and edema Respiratory: Negative for shortness of breath, cough, and wheezing, Abdomen/GI: Negative for diarrhea, and constipation positive for abdominal pain, nausea, vomiting Back: Negative for injury and pain : Negative for injury, bleeding and discharge MS/Extremity: Negative for injury and deformity Skin: Negative for rash, and discoloration Neuro: Negative for headache, weakness, numbness, tingling, and seizure Psych: Negative for suicide ideation, homicidal ideation, and hallucinations Initial Vital Sign VS Vital Signs Date Time Temp Pulse Resp B/P (MAP) Pulse Ox O2 Delivery O2 Flow Rate FiO2 03/13/25 19:33 98.4 87 16 201/75 100 Room Air* 0 21 Physical Exam Dictation Vital Signs reviewed General Appearance: Alert, oriented x 3, no acute distress, well developed, nourished. Head and Face: non-traumatic. Eyes: PERRL, pink conjunctivas, eyelid no trauma, anterior chamber with arcus senilis. Ears: Pinnas intact and no signs of trauma or erythema ear canals clear and no discharge TM no erythema Nose: No discharge, no bleeding. Oropharynx: Mouth normal, tongue pink. pharynx clear,no erythema, tonsils no exudates, no abscesses noted, mucous membrane moist Neck: Supple, non-tender, no thyromegaly, no masses, no JVD, no bruits Breast:Deferred Chest:No tenderness, no crepitus, no paradoxical movement, no retractions Lungs:Clear, well-ventilated, symmetric, no rales, no wheezing, no rhonchi, no stridor, good breath sounds bilaterally Heart: Regular rate, regular rhythm, no murmur, no gallops Vascular: no peripheral edema, Abdomen: Soft, positive bowel sounds, nondistended, no guarding, Generalized tenderness,, no rebound, no masses no hepatomegaly, no splenomegaly, no Ratliff's sign, no hernias. Rectal: Deferred Genital: Deferred Neurological: Normal speech, motor function intact, sensory function intact Musculoskeletal: Neck nontender, full range of motion, back nontender, full range of motion, Extremities: nontender, full range of motion Skin: Color pink, dry, no turgor, no rash, no lacerations, no abrasions, no contusions. Lymphatic: Deferred Results (Laboratory/Radiology) Laboratory/Radiology Laboratory Tests Test 03/13/25 19:45 03/13/25 22:20 White Blood Count 11.9 K/uL (4.8-10.8) H Red Blood Count 5.89 MIL/uL (4.00-5.50) H Hemoglobin 17.3 g/dL (12.0-16.0) H Hematocrit 49.2 % (36-48) H Mean Corpuscular Volume 83.5 fL (79-99) Mean Corpuscular Hemoglobin 29.4 pg (27.0-33.0) Mean Corpuscular Hemoglobin Concent 35.2 g/dL (32.0-36.0) Red Cell Distribution Width 13.1 % (11.0-15.5) Platelet Count 231 K/uL (130-400) Mean Platelet Volume 11.4 fL (7.5-10.5) H Immature Granulocyte % (Auto) 0.3 % (0-1) Neutrophils (%) (Auto) 70.9 % (40.0-77.0) Lymphocytes (%) (Auto) 21.7 % (21.0-51.0) Monocytes (%) (Auto) 6.1 % (3.0-13.0) Eosinophils (%) (Auto) 0.7 % (0.0-8.0) Basophils (%) (Auto) 0.3 % (0.0-5.0) Neutrophils # (Auto) 8.4 K/uL (1.8-7.7) H Lymphocytes # (Auto) 2.6 K/uL (1.0-4.8) Monocytes # (Auto) 0.7 K/uL (0.1-1.0) Eosinophils # (Auto) 0.08 K/uL (0.00-0.70) Basophils # (Auto) 0.04 K/uL (0.00-0.20) Absolute Immature Granulocyte (auto 0.04 K/uL (0-1) Nucleated Red Blood Cells 0.0 % (0.0-0.19) Sodium Level 143 mmol/L (136-145) Potassium Level 2.8 mmol/L (3.5-5.1) *L Chloride Level 103 mmol/L (101-111) Carbon Dioxide Level 26 mmol/L (21-32) Blood Urea Nitrogen 14 mg/dL (7-18) Creatinine 0.9 mg/dL (0.5-1.0) Glomerular Filtration Rate Calc 74 mL/min (>90) Random Glucose 97 mg/dL (70-105) Total Calcium 10.3 mg/dL (8.5-10.1) H Magnesium Level 1.90 mg/dL (1.80-2.40) Total Bilirubin 0.7 mg/dL (0.2-1.0) Direct Bilirubin 0.2 mg/dL (0.0-0.3) Aspartate Amino Transf (AST/SGOT) 27 U/L (10-37) Alanine Aminotransferase (ALT/SGPT) 29 U/L (12-78) Alkaline Phosphatase 158 U/L (50-136) H Total Creatine Kinase 64 U/L (21-232) Troponin I High Sensitivity 5.9 ng/L (4-50) Total Protein 8.4 g/dL (6.0-8.3) H Albumin 4.0 g/dL (3.5-5.0) Lipase 19 U/L (16-77) Urine Color COLORLESS (YELLOW) Urine Appearance CLEAR (CLEAR) Urine pH 8.0 (5.0-8.0) Urine Specific [place] 1.009 (1.001-1.031) Urine Protein NEGATIVE mg/dL (NEGATIVE) Urine Glucose (UA) NEGATIVE mg/dL (NEGATIVE) Urine Ketones 40 mg/dL (NEGATIVE) H Urine Occult Blood NEGATIVE (NEGATIVE) Urine Nitrate NEGATIVE (NEGATIVE) Urine Bilirubin NEGATIVE mg/dL (NEGATIVE) Urine Urobilinogen 0.2 mg/dL (0.2-1.0) Urine Leukocyte Esterase NEGATIVE Kavya/uL Urine RBC 2-5 /HPF (0-1) H Urine WBC 0-1 /HPF (0-1) Urine Squamous Epithelial Cells RARE /HPF (0-2) Urine Bacteria FEW /HPF (None Seen) REASON: ABD PAIN left side ORDERING PHYSICIAN: ORLANDO FERRARA PROCEDURE: ABD PEL WO - CT ABDOMEN/PELVIS W/O CONTRAST CT ABDOMEN PELVIS WITHOUT CONTRAST Clinical Information: ABD PAIN left side Comparison: CT Dose Index (CTDI): 28.40 mGy Dose Length Product (DLP): 1536.00 total mGy-cm PROTOCOL: Routine noncontrast helical scanning of the abdomen and pelvis was performed at 5mm collimation. Findings: There is a left ureterovesical junction calculus measuring 6 mm causing [id number] hydroureteronephrosis. Additional bilateral nonobstructing renal calculi seen. The lung bases are clear. The stomach is unremarkable. It shows no wall thickening. No gross ulceration is seen. It is not overly distended. There are no surrounding inflammatory changes. No wall lesions are identified to suggest cancer. The spleen is unremarkable. It is not enlarged. The pancreas shows normal anatomy. It is not fatty replaced. It shows no lesions. The pancreatic duct is not dilated. There is evidence of cholelithiasis. No evidence of acute or chronic inflammation is seen. The adrenal glands are unremarkable. There is no enlargement. No lesions are noted. The liver is unremarkable. It shows no focal masses. The appendix is unremarkable. It shows no evidence of inflammation. No appendicolith is seen. The small bowel is unremarkable. There is no evidence of dilatation to suggest obstruction. No evidence of adynamic ileus is seen. There is no small bowel wall thickening to suggest enteritis. The colon is unremarkable. The urinary bladder is unremarkable. There is no wall thickening to suggest tumor or inflammation. There are no intraluminal calculi. There are no diverticula. There is no evidence of chronic bladder outlet obstruction. There is no evidence of urinary bladder distention to suggest urinary retention. The other pelvic structures are unremarkable. The bony and vascular structures are unremarkable for the patient's age. IMPRESSION: Urinary tract calculus causing obstruction. This study was performed using dose reduction techniques to include automated exposure control and/or adjustment of the mA and/or kV according to patient size. Labs Reviewed?: Yes EKG: (+) rhythm (Sinus rhythm) EKG Comment: Date:03/13/2025 Time:1944 Ventricular rate:99 IA interval:173 QRS duration:75 QT/QTc:466 EKG interpretation: Sinus rhythm Reviewed by ED Attending no STEMI ED Course ED Course Orders Procedure Category Date Status Time Cbc With Differential LAB 03/13/25 Complete 19:32 Urinalysis Profile LAB 03/13/25 Complete 19:32 12 Lead Ekg Tracing- EKG 03/13/25 Logged Technical 19:32 0.9%Nacl 1000ml (Ns PHA 03/13/25 Complete 1000ml) 20:00 Morphine 4mg Syg PHA 03/13/25 Complete (Morphine 4mg Syg) 20:00 Ondansetron 4mg Inj PHA 03/13/25 Complete (Zofran 4mg Inj) 20:00 Pantoprazole 40mg Inj PHA 03/13/25 Complete (Protonix 40mg Inj 20:00 Ct Abdomen/Pelvis W/O CT 03/13/25 Resulted Contrast 19:32 Lipase LAB 03/13/25 Complete 19:32 Basic Metabolic Panel LAB 03/13/25 Complete 19:32 Hepatic Function Panel LAB 03/13/25 Complete 19:32 Cardiac Panel LAB 03/13/25 Complete 19:32 Potassium Bicarb/Cit PHA 03/13/25 Complete Ac 25meq (K-Lyte Ta 20:30 Magnesium LAB 03/13/25 Complete 20:19 Tamsulosin Hcl PHA 03/13/25 Complete (Flomax) 20:30 Ketorolac PHA 03/13/25 Complete Tromethamine 30mg/Ml 20:30 Potassium Bicarb/Cit PHA 03/13/25 Logged Ac 25meq (K-Lyte Ta 23:00 Current Medications Medications (Trade) Dose Ordered Sig/Joycelyn Route PRN Reason Start Time Stop Time Status Last Admin Dose Admin Ketorolac Tromethamine (toRADol) 30 mg ONCE ONCE IVP 03/13/25 20:30 03/13/25 20:31 DC 03/13/25 22:00 Morphine Sulfate (morPHINE 4MG SYG) 4 mg ONCE ONCE IVP 03/13/25 20:00 03/13/25 20:01 DC 03/13/25 20:09 Ondansetron HCl (zoFRAN 4MG INJ) 4 mg ONCE ONCE IVP 03/13/25 20:00 03/13/25 20:01 DC 03/13/25 20:09 Pantoprazole Sodium (PROTonix 40MG INJ) 40 mg ONCE ONCE IVP 03/13/25 20:00 03/13/25 20:01 DC 03/13/25 20:09 Potassium Bicarbonate (K-Lyte Tablet Eff 25 Meq Tablet.eff) 25 meq ONCE ONCE PO 03/13/25 20:30 03/13/25 20:31 DC 03/13/25 22:35 Potassium Bicarbonate (K-Lyte Tablet Eff 25 Meq Tablet.eff) 25 meq ONCE ONCE PO 03/13/25 23:00 03/13/25 23:01 UNV Sodium Chloride 1,000 ml @ 0 mls/hr ONCE ONCE IV 03/13/25 20:00 03/13/25 20:01 DC 03/13/25 20:09 Tamsulosin HCl (FloMAX) 0.4 mg ONCE ONCE PO 03/13/25 20:30 03/13/25 20:31 DC 03/13/25 22:35 Vital Signs Date Time Temp Pulse Resp B/P (MAP) Pulse Ox O2 Delivery O2 Flow Rate FiO2 03/13/25 21:58 98.4 88 18 135/65 99 Room Air* 0 21 03/13/25 20:38 98.4 90 18 180/79 99 Room Air* 0 21 03/13/25 19:33 98.4 87 16 201/75 100 Room Air* 0 21 Medical Decision Making MDM MDM: The patient is a 59-year-old female with a history of hypertension, COPD, diabetes who presents to the emergency department with complaints of lower abdominal pain that radiates up her left upper abdominal pain onset 3:00 p.m. associated with nausea and nonbloody vomiting. Patient denies any diarrhea, reports one episode of bowel movement today. Denies any fever. Patient initially reported that she had trouble urinating but reports she has now been able to urinate. CBC showed mild leukocytosis, no anemia, chemistry showed hypokalemia which was replaced in ER, GFR of 74, creatinine of 0.9, magnesium of 1.9 negative lipase, negative troponin. Urinalysis unremarkable CT abdomen and pelvis showed a 6 mm left ureterovesical junction calculus with mild to moderate hydroureteronephrosis. After medication administration patient reports feeling relieved. No longer having any pain. Labs and imaging discussed with the patient who agrees to follow up with Urology and to return if symptoms worsen. Patient at this time in no acute distress, nontoxic appearing, stable vital signs. Differential diagnosis: Kidney stones, UTI, urinary obstruction, gastroenteritis, gastritis, dehydration Need for hospitalization: Patient does not meet criteria for hospitalization. There are no social concerns with this patient. DX & DISP Disposition: Discharge Departure Impression: Primary Impression: Kidney stone on left side Additional Impression: Hypokalemia Condition: Stable Scripts Ibuprofen (Ibuprofen) 600 Mg Tablet 600 MG PO Q6H PRN for PAIN, #20 TAB Prov: ORLANDO FERRARA 03/13/25 Tamsulosin HCl (Flomax) 0.4 Mg Cap.er.24h 0.4 MG PO DAILY for 30 Days, #30 CAPSULE.DR Prov: ORLANDO FERRARA 03/13/25 Additional Instructions: Please follow up with urologist as soon as possible. Take your medications as prescribed. If symptoms worsen, you develop any fevers, severe pain, nausea or vomiting please return to ER. Otherwise follow up with the primary doctor. FOLLOW-UP WITH PRIMARY CARE PROVIDER IN 1 TO 2 DAYS. TAKE MEDICATIONS DIRECTED HERE IN THE EMERGENCY ROOM. OKAY TO CONTINUE HOME MEDICATIONS UNLESS OTHERWISE DISCUSSED DURING YOUR VISIT IN THE EMERGENCY ROOM TODAY. RETURN TO YOUR NEAREST EMERGENCY ROOM IF SYMPTOMS WORSEN OR IF THERE IS NO IMPROVEMENT. CALL 911 IF YOU NEED IMMEDIATE ASSISTANCE. TAKE TYLENOL OR MOTRIN [id number] NEEDED AND IF NO CONTRAINDICATIONS ARE PRESENT. INCREASE ORAL HYDRATION. A WOUND CULTURE OR URINE CULTURE WAS ORDERED HERE IN THE EMERGENCY ROOM DEPARTMENT PLEASE FOLLOW-UP WITH PRIMARY CARE PROVIDER AND ADVISE THEM TO GET REPEAT PORTS FROM OUR FACILITY. IF YOU HAD ANY WILLIAM WRAP/SPLINTS THAT WERE APPLIED HERE, PLEASE DO NOT REMOVE THEM UNTIL YOU SEE YOUR PRIMARY CARE OR SPECIALTY. Referrals: TOMMY WOLF MD (PCP) RICKY SAEZ MD Time of Disposition: 23:05 I have reviewed the case, and I agree with, Diagnosis and Plan ORLANDO FERRARA March 13, 2025 19:50
[2025-03-13 19:51] LABS: BASOPHILS # (AUTO) 0.04 K/uL (0.00-0.20); BASOPHILS % (AUTO) 0.3 % (0.0-5.0); EOSINOPHILS # (AUTO) 0.08 K/uL (0.00-0.70); EOSINOPHILS % (AUTO) 0.7 % (0.0-8.0); HEMATOCRIT 49.2 % (36-48); IMMATURE GRANULOCYTE ABSOLUTE 0.04 K/uL (0-1); LYMPHOCYTES # (AUTO) 2.6 K/uL (1.0-4.8); LYMPHOCYTES % (AUTO) 21.7 % (21.0-51.0); MEAN CORPUSCULAR HEMOGLOBIN 29.4 pg (27.0-33.0); MEAN CORPUSCULAR HGB CONC 35.2 g/dL (32.0-36.0); MEAN CORPUSCULAR VOLUME 83.5 fL (79-99); MONOCYTES # (AUTO) 0.7 K/uL (0.1-1.0); MONOCYTES % (AUTO) 6.1 % (3.0-13.0); NEUTROPHILS # (AUTO) 8.4 K/uL (1.8-7.7); NEUTROPHILS % (AUTO) 70.9 % (40.0-77.0); PLATELET COUNT (AUTO) 231 K/uL (130-400); RED BLOOD CELL COUNT(AUTO) 5.89 MIL/uL (4.00-5.50); RED CELL DISTRIBUTION WIDTH 13.1 % (11.0-15.5); WHITE BLOOD COUNT (AUTO) 11.9 K/uL (4.8-10.8)
--- NOTE | 2025-03-13 20:02 | HMCIMG ---
CT ABDOMEN PELVIS WITHOUT CONTRAST Clinical Information: ABD PAIN left side Comparison: CT Dose Index (CTDI): 28.40 mGy Dose Length Product (DLP): 1536.00 total mGy-cm PROTOCOL: Routine noncontrast helical scanning of the abdomen and pelvis was performed at 5mm collimation. Findings: There is a left ureterovesical junction calculus measuring 6 mm causing [id number] hydroureteronephrosis. Additional bilateral nonobstructing renal calculi seen. The lung bases are clear. The stomach is unremarkable. It shows no wall thickening. No gross ulceration is seen. It is not overly distended. There are no surrounding inflammatory changes. No wall lesions are identified to suggest cancer. The spleen is unremarkable. It is not enlarged. The pancreas shows normal anatomy. It is not fatty replaced. It shows no lesions. The pancreatic duct is not dilated. There is evidence of cholelithiasis. No evidence of acute or chronic inflammation is seen. The adrenal glands are unremarkable. There is no enlargement. No lesions are noted. The liver is unremarkable. It shows no focal masses. The appendix is unremarkable. It shows no evidence of inflammation. No appendicolith is seen. The small bowel is unremarkable. There is no evidence of dilatation to suggest obstruction. No evidence of adynamic ileus is seen. There is no small bowel wall thickening to suggest enteritis. The colon is unremarkable. The urinary bladder is unremarkable. There is no wall thickening to suggest tumor or inflammation. There are no intraluminal calculi. There are no diverticula. There is no evidence of chronic bladder outlet obstruction. There is no evidence of urinary bladder distention to suggest urinary retention. The other pelvic structures are unremarkable. The bony and vascular structures are unremarkable for the patient's age. IMPRESSION: Urinary tract calculus causing obstruction. This study was performed using dose reduction techniques to include automated exposure control and/or adjustment of the mA and/or kV according to patient size.
[2025-03-13] MEDS: PANTOPrazole 40 MG/VIAL IVP ONE (20:09)
[2025-03-13] MEDS: ondanSETRON 4MG INJ IVP ONE (20:09)
[2025-03-13] MEDS: 0.9%NACL 1000ML 1,000 ML IV ONE (20:09)
[2025-03-13] MEDS: morPHINE 4 MG SYG IVP ONE (20:09)
[2025-03-13 20:10] LABS: BILIRUBIN,DIRECT 0.2 mg/dL (0.0-0.3); BILIRUBIN,TOTAL 0.7 mg/dL (0.2-1.0); CREATININE 0.9 mg/dL (0.5-1.0); TOTAL PROTEIN, SERUM 8.4 g/dL (6.0-8.3)
[2025-03-13 20:14] LABS: POTASSIUM 2.8 mmol/L (3.5-5.1)
[2025-03-13 21:58] VITALS: O2SAT 99
[2025-03-13] MEDS: ketOROlac 30MG VIAL (30MG/ML) IVP ONE (22:00)
[2025-03-13] MEDS: PoTASSium BIcarbonate/CIT AC 25 MEQ TABLET.EFF PO ONE ×2 (22:35→23:15)
[2025-03-13] MEDS: tamSULOsin HCL 0.4 MG CAP.ER.24H PO ONE (22:35)
[2025-03-13 22:42] LABS: APPEARANCE,URINE CLEAR (CLEAR); BILIRUBIN,URINE NEGATIVE (NEGATIVE); COLOR,URINE COLORLESS (YELLOW); GLUCOSE, URINE (UA) NEGATIVE (NEGATIVE); KETONES,URINE 40 mg/dL (NEGATIVE); LEUKOCYTE ESTERASE ,URINE NEGATIVE Leu/uL (NEGATIVE); NITRATE,URINE NEGATIVE (NEGATIVE); OCCULT BLOOD,URINE NEGATIVE (NEGATIVE); PROTEIN,URINE NEGATIVE (NEGATIVE); UROBILINOGEN,URINE 0.2 mg/dL (0.2-1.0)
[2025-03-13 22:43] LABS: ADD UA MICROSCOPIC YES
[2025-03-13 22:44] LABS: BACTERIA,URINE FEW /HPF (None Seen); MUCUS,URINE RARE LPF (None Seen); SQUAMOUS EPITHELIAL CELL,UR RARE /HPF (0-2); WBC,URINE 0-1 /HPF (0-1)
[2025-03-13] MEDS ORDERED: TAMS-55 PO (23:07)
[2025-03-13] MEDS ORDERED: IBUP-2070 PO (23:07)
[2025-03-13 23:15] VITALS: BP 135/65; PULSE 85; RESP 18; TEMP 98.4
--- NOTE | 2025-03-14 08:31 | EKG ---
[facility] Test Date: 2025-03-13 Test Time: 19:45:27 Pat Name: CHAPINCITO MARIE Department: [facility] Room: Gender: F [employer] Supervisor: [id number] : 1965 Requested By: ORLANDO FERRARA Order Number: [id number] Reading MD: Norma Escobar Measurements Intervals [place] Rate: 99 P: 70 VT: 173 QRS: 1 QRSD: 75 T: 28 QT: 362 QTc: 466 Interpretive Statements Sinus rhythm Anterior infarct, old Compared to ECG 04/20/2024 12:47:45 Myocardial infarct finding now present Electronically Signed On 03-15-2025 18:38:58 CDT by Norma Escobar Please click the below link to view image of tracing.
== END 2025-03-13 23:30 | disposition home or self-care (01) ==
LOC: EDH 19:22
DX: N20.0 Calculus of kidney (principal); E87.6 Hypokalemia; E11.9 Type 2 diabetes mellitus without complications; G47.30 Sleep apnea, unspecified; I10 Essential (primary) hypertension; I25.2 Old myocardial infarction; J45.909 Unspecified asthma, uncomplicated; M19.90 Unspecified osteoarthritis, unspecified site; Z79.899 Other long term (current) drug therapy; Z88.0 Allergy status to penicillin; Z88.8 Allergy status to other drugs, medicaments and biological substances; Z90.710 Acquired absence of both cervix and uterus; Z91.041 Radiographic dye allergy status; Z98.890 Other specified postprocedural states
CPT/HCPCS: 99284; 74176; 96374; 96375; 96361; 82550; 80076; 83735; 84484; 80048; 83690; 85025; 81001; 36415; 93005; J1885; J7030; J2405; J2270; J2470